=== PATIENT | female | born 2000 | race Caucasian/White ===

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

== ENCOUNTER 2019-01-21 15:08 | Emergency (ER) | payer BC, MEDICAID ==
[~2019-01-21] VITALS: Ht 154.9 cm; Wt 55.3 kg
[~2019-01-21 15:08] MED LIST: ALBU8.5H8 INH
[2019-01-21 15:16] VITALS: Ht 154.9 cm; Wt 55.3 kg
[2019-01-21] MEDS ORDERED: METOCLOPRAMIDE 10 MG INJ IV ONE (16:30)
[2019-01-21] MEDS ORDERED: ONDANSETRON (ODT) 4 MG TAB ODT STA (16:45)
[2019-01-21] MEDS ORDERED: METO10TA92 PO (18:44)
[2019-01-21] MEDS ORDERED: ACET325T33 PO (18:44)
--- NOTE | 2019-01-21 18:46 | ERD ---
ER Documentation Chief Complaint Chief Complaint ABD PAIN, PT 8 WKS PG, VAG SPOTTING HPI 18-year-old female presented to ED for vaginal bleeding. Patient is 8 weeks gestation this is her first she is G1, . Patient states she began spotting 1 week ago and has stopped a couple days ago she describes the bleeding as brownish and dried she states she has abdominal pain and it feels like needles and rates it 10 out of 10. The patient has not had an ultrasound yet for this and states she does not know the name of her OB but she was told she is 8 weeks . Patient has past medical history of asthma. Patient denies any allergies to medication patient states she is on vitamins ROS All systems reviewed and are negative except as per history of present illness. Medications Home Meds Active Scripts Metoclopramide* (Reglan*) 10 Mg Tablet, 10 MG PO Q6 PRN for NAUSEA AND/OR VOMITING, #10 TAB Prov:BRITNEY SAAVEDRA PA-C 01/21/19 Acetaminophen* (Tylenol*) 325 Mg Tablet, 1 TAB PO Q6 PRN for PAIN AND OR ELEVATED TEMP, #20 TAB Prov:BRITNEY SAAVEDRA PA-C 01/21/19 Albuterol Sulfate* (Proair HFA*) 8.5 Gm Hfa.aer.ad, 2 PUFF INH Q4, #1 INHALER Prov:AVRIL ARMENDARIZ 07/13/17 Allergies Allergies: Coded Allergies: No Known Allergy (Unverified Allergy, Unknown, 02/01/07) PMhx/Soc Hx Respiratory Disorders: Yes (asthma) Hx Alcohol Use: No Hx Substance Use: No Hx Tobacco Use: No Smoking Status: Never smoker FmHx Family History: No diabetes, No coronary disease, No other Physical Exam Vitals Vital Signs Date Temp Pulse Resp B/P (MAP) Pulse Ox O2 O2 Flow FiO2 Time Delivery Rate 01/21/19 71 16 102/58 97 Room Air 19:03 (73) 01/21/19 98.6 83 17 114/60 98 15:16 (78) Physical Exam Const: No acute distress Head: Atraumatic Eyes: Normal Conjunctiva ENT: Normal External Ears, Nose and Mouth. Neck: Full range of motion. No meningismus. Resp: Clear to auscultation bilaterally Cardio: Regular rate and rhythm, no murmurs Abd: Soft, non tender, non distended. Normal bowel sounds Skin: No petechiae or rashes Back: No midline or flank tenderness Ext: No cyanosis, or edema Neur: Awake and alert Psych: Normal Mood and Affect Result Diagram: 01/21/19 5160 Results 24 hrs Laboratory Tests Test 01/21/19 16:43 White Blood Count 9.7 10^3/ul Red Blood Count 4.39 10^6/ul Hemoglobin 13.5 g/dl Hematocrit 39.1 % Mean Corpuscular Volume 89.1 fl Mean Corpuscular Hemoglobin 30.8 pg Mean Corpuscular Hemoglobin Concent 34.5 g/dl Red Cell Distribution Width 11.6 % Platelet Count 282 10^3/UL Mean Platelet Volume 12.2 fl Immature Granulocytes % 0.500 % Neutrophils % 77.9 % Lymphocytes % 14.6 % Monocytes % 5.7 % Eosinophils % 0.7 % Basophils % 0.6 % Nucleated Red Blood Cells % 0.0 /100WBC Immature Granulocytes # 0.050 10^3/ul Neutrophils # 7.5 10^3/ul Lymphocytes # 1.4 10^3/ul Monocytes # 0.6 10^3/ul Eosinophils # 0.1 10^3/ul Basophils # 0.1 10^3/ul Nucleated Red Blood Cells # 0.0 10^3/ul Urine Color YELLOW Urine Clarity SLIGHTLY CLOUDY Urine pH 6.0 Urine Specific Remlap 1.003 Urine Ketones NEGATIVE mg/dL Urine Nitrite NEGATIVE mg/dL Urine Bilirubin NEGATIVE mg/dL Urine Urobilinogen NEGATIVE mg/dL Urine Leukocyte Esterase NEGATIVE Christiano/ul Urine Microscopic RBC 0 /HPF Urine Microscopic WBC 4 /HPF Urine Squamous Epithelial Cells MODERATE /HPF Urine Bacteria MANY /HPF Urine Hemoglobin 1+ mg/dL Urine Glucose NEGATIVE mg/dL Urine Total Protein NEGATIVE mg/dl Beta HCG, Quantitative 638050.0 mIU/ml Current Medications Medications Dose Sig/Faisal Start Time Status Last (Trade) Ordered Route PRN Stop Time Admin Dose Reason Admin 5 mg ONCE ONCE 01/21/19 DC Metoclopramid IV 16:30 e HCl 01/21/19 16:46 (Reglan) Ondansetron 4 mg ONCE STAT 01/21/19 DC 01/21/19 HCl (Zofran ODT 16:45 16:49 Odt) 01/21/19 16:46 Procedures/MDM Diagnostic imaging: Read by radiologist PROCEDURE: US OB. CLINICAL INDICATION: , vaginal bleeding. TECHNIQUE: Multiple sonographic images of the pelvis were obtained. Transabdominal views of the pelvis are available for review. The images were reviewed on a PACS workstation. COMPARISON: No prior studies are available for comparison. FINDINGS: There is a single intrauterine . The mean gestational sac diameter measures 2.66 cm, corresponding to a 1-ymbp-8-day . The crown-rump length equals 1.32 cm which corresponds to a 8-yvdo-9-day gestational age by ultrasound criteria. cardiac activity measures 168 bpm. A 1.0 x 0.4 cm subchorionic hemorrhage is identified. The right ovary measures 2.4 x 1.0 x 1.3 cm . The left ovary is not visualized. Blood flow is demonstrated to the right ovary. The adnexa are unremarkable. There is no free pelvic fluid. IMPRESSION: Single live intrauterine gestation of approximately 7 weeks 5 days. The estimated date of delivery is 09/04/2019. Small subchorionic hematoma. Continued follow-up is recommended. Medical decision making: This is a 18-year-old female who is 8 weeks gestation who presents with vaginal bleeding. Vital signs were reviewed. Patient was afebrile. Patient was hemodynamically stable. Urine test was positive. Quantitative b-HCG was 559084.0. Given that Rh factor was negative, CBC showed no evidence of systemic infection or severe anemia. Given these findings, the patients presentation is most consistent with threatened . I have a much lower clinical concern for ectopic , ruptured ectopic , molar , subchorionic hematoma, spontaneous , incomplete , complete , missed , placental abruption, placental previa, vasa previa, uterine rupture, anembyronic .. Patient states she is also nauseous patient was given Reglan and Zofran in the ED. Patient's ultrasound and blood work came back consistent with her current but threatened could not be ruled out. I spoke with the patient and advised her that she needs to come back in 2 days for reevaluation. I advised the patient that if the symptoms worsen or she worsening bleeding or worsening abdominal pain to return immediately. Advised the patient to contact her OB tomorrow regarding this visit in the ED. patient had no further questions upon discharge in agreement to the treatment plan Prescription for home: Zofran Reglan I have discussed with the patient proper use and common side effects to expert with the medication . I advised the patient/family to speak with the pharmacist dispensing the medication to be advised of any potential drug interactions with other medication or supplements they may be taking. Discharge: At this time, patient is stable for discharge and outpatient management. I have instructed the patient to follow-up with his\her primary care physician in 1 to 2 days. I have discussed with the patient the possibility of needing to see a specialist for further work-up and imaging studies if symptoms persist. I have instructed the patient to promptly return to the ER for any new or worsening symptoms including increased pain, fever, nausea, vomiting, weakness or LOC. The patient and\or family expressed understanding of and agreement with this plan. All questions were answered. Home care instructions were provided. Disclaimer: Inadvertent spelling and grammatical errors are likely due to EHR\dictation software use and do not reflect on the overall quality of patient care. Also, please note that the electronic time recorded on the note does not necessarily reflect the actual time of the patient encounter. Departure Diagnosis: Primary Impression: Bleeding in early Additional Impression: Abdominal pain Abdominal location: unspecified location Qualified Codes: R10.9 - Unspecified abdominal pain Condition: Good Patient Instructions: Abdominal Pain, Abdominal Pain, Early Referrals: [facility], [facility] YOU HAVE RECEIVED A MEDICAL SCREENING EXAM AND THE RESULTS INDICATE THAT YOU DO NOT HAVE A CONDITION THAT REQUIRES URGENT TREATMENT IN THE EMERGENCY DEPARTMENT. FURTHER EVALUATION AND TREATMENT OF YOUR CONDITION CAN WAIT UNTIL YOU ARE SEEN IN YOUR DOCTORS OFFICE WITHIN THE NEXT 1-2 DAYS. IT IS YOUR RESPONSIBILITY TO MAKE AN APPOINTMENT FOR FOLOW-UP CARE. IF YOU HAVE A PRIMARY DOCTOR --you should call your primary doctor and schedule an appointment IF YOU DO NOT HAVE A PRIMARY DOCTOR YOU CAN CALL OUR PHYSICIAN REFERRAL HOTLINE AT IF YOU CAN NOT AFFORD TO SEE A PHYSICIAN YOU CAN CHOSE FROM THE FOLLOWING [facility], [facility] CL[facility]ICS [facility] [address] [facility] [address] [facility]. [facility] [address] [facility] [address] [facility] [address] [facility]. [facility] [address] [facility]. [facility] YOU HAVE RECEIVED A MEDICAL SCREENING EXAM AND THE RESULTS INDICATE THAT YOU DO NOT HAVE A CONDITION THAT REQUIRES URGENT TREATMENT IN THE EMERGENCY DEPARTMENT. FURTHER EVALUATION AND TREATMENT OF YOUR CONDITION CAN WAIT UNTIL YOU ARE SEEN IN YOUR DOCTORS OFFICE WITHIN THE NEXT 1-2 DAYS. IT IS YOUR RESPONSIBILITY TO MAKE AN APPOINTMENT FOR FOLOW- CARE. IF YOU HAVE A PRIMARY DOCTOR --you should call your primary doctor and schedule and appointment IF YOU DO NOT HAVE A PRIMARY DOCTOR YOU CAN CALL OUR PHYSICIAN REFERRAL HOTLINE AT . IF YOU CAN NOT AFFORD TO SEE A PHYSICIAN YOU CAN CHOSE FROM THE FOLLOWING [facility] INSTITUTIONS: [facility] [address] [place] [address] [facility] [address] [place] [address] [facility] + [facility] [address] [place] [address] TEST DESIGNER [place] [address] [facility] [address] [place], [place] [phone] OFFICE FAX [facility] [address] [place], [place] [id number] [facility] [address] [place] [address] JOJO BANEGAS [address] [facility], [address] [address] [address] [place], [place] [phone] [facility] [address] [place] [address] [address] [facility] [address] - [address], [facility] [id number] ORNELAS, AMAD[place] [address] [facility]. [address], [place] [address] [address] BALLESTEROS, [place] [address] [place] [address] Additional Instructions: Follow-up in 2 days for repeat lab ultrasound beta-hCG.Return to this facility TOMORROW for a repeat exam.Return sooner if your condition worsens before then. Try to get in with your OB this week. Return to ER immediately if your symptoms worsen BRITNEY SAAVEDRA PA-C Jan 21, 2019 18:46
[2019-01-21 19:03] VITALS: BP 102/58; PULSE 71; RESP 16
== END 2019-01-21 19:05 | disposition home or self-care (01) ==
LOC: FTE 15:08
DX: O20.9 Hemorrhage in early pregnancy, unspecified (principal); O26.891 Other specified pregnancy related conditions, first trimester; R10.9 Unspecified abdominal pain; Z3A.01 Less than 8 weeks gestation of pregnancy
CPT/HCPCS: 76801; 76817; 81001; 84702; 85025; 86900; 86901; Z7610; 36415